=== PATIENT | female | born 1965 | race Asian ===

== ENCOUNTER 2016-05-01 06:16 | Emergency (ER) | payer BC, OTHER ==
[~2016-05-01] VITALS: Ht 172.7 cm; Wt 100.7 kg
[~2016-05-01 06:16] MED LIST: CELE200C2 PO; CELEBREX200 MG PO; DICL75TA4 PO
[2016-05-01 06:26] VITALS: TEMP 98
[2016-05-01 06:50] VITALS: BP 126/70
== END 2016-05-01 06:50 | disposition home or self-care (01) ==
LOC: ED 06:16
DX: H92.02 Otalgia, left ear (principal)
CPT/HCPCS: 99281

== ENCOUNTER 2017-01-02 16:58 | Emergency (ER) | payer BC ==
[~2017-01-02] VITALS: Ht 170.2 cm; Wt 102.5 kg
[2017-01-02 17:03] VITALS: TEMP 98
[2017-01-02 18:34] VITALS: BP 120/74
== END 2017-01-02 18:34 | disposition home or self-care (01) ==
LOC: ED 16:58
DX: S46.912A Strain of unspecified muscle, fascia and tendon at shoulder and upper arm level, left arm, initial encounter (principal); M25.462 Effusion, left knee; M25.461 Effusion, right knee; S60.212A Contusion of left wrist, initial encounter; W01.0XXA Fall on same level from slipping, tripping and stumbling without subsequent striking against object, initial encounter; Y92.512 Supermarket, store or market as the place of occurrence of the external cause
CPT/HCPCS: 99283

== ENCOUNTER 2018-02-03 10:37 | Outpatient (CLI) | payer OTHER | END 2018-02-03 22:41 | disposition home or self-care (01) | LOC: MAMMO 10:37 | DX: N64.4 Mastodynia (principal) ==

== ENCOUNTER 2018-08-20 08:58 | Outpatient (CLI) | payer OTHER | END 2018-08-20 21:00 | disposition home or self-care (01) | LOC: MAMMO 08:58 | DX: N64.4 Mastodynia (principal) ==

== ENCOUNTER 2019-05-21 08:07 | Outpatient (CLI) | payer OTHER | END 2019-05-21 19:22 | disposition home or self-care (01) | LOC: MAMMO 08:07 | DX: N64.4 Mastodynia (principal) ==

== ENCOUNTER 2019-12-29 08:10 | Outpatient (CLI) | payer OTHER | END 2019-12-29 23:55 | disposition home or self-care (01) | LOC: MRI 08:10 | DX: M25.552 Pain in left hip (principal) ==

== ENCOUNTER 2020-05-30 18:14 | Emergency (ER) | payer OTHER ==
[~2020-05-30] VITALS: Ht 167.6 cm; Wt 103.4 kg
[2020-05-30 19:43] LABS: PLATELET COUNT 197 K/uL (152-353)
[2020-05-30 19:53] LABS: POTASSIUM 3.8 mmol/L (3.6-5.2)
[2020-05-30 21:30] VITALS: BP 124/66; TEMP 99.5
== END 2020-05-30 21:30 | disposition still patient (30) ==
LOC: ED 18:14
PROVIDERS: Family Medicine
DX: U07.1 COVID-19 (principal); R05 Cough; J06.9 Acute upper respiratory infection, unspecified
CPT/HCPCS: 36415; 80053; 85027; 87502; 87635; 87651; 99283; U0003

== ENCOUNTER 2020-08-31 09:11 | Outpatient (CLI) | payer OTHER | END 2020-08-31 20:25 | disposition home or self-care (01) | LOC: MAMMO 09:11 | PROVIDERS: ATTEND Registered Nurse | DX: N64.4 Mastodynia (principal) | CPT/HCPCS: G0279 ==

== ENCOUNTER 2021-03-07 09:40 | Day surgery (SDC) | payer OTHER ==
[2021-03-05 10:31] LABS: PLATELET COUNT 337 K/uL (152-353)
[2021-03-05 10:45] LABS: POTASSIUM 3.6 mmol/L (3.6-5.2)
[~2021-03-07] VITALS: Ht 30.5 cm; Wt 0.5 kg
== END 2021-03-07 12:28 | disposition home or self-care (01) ==
LOC: OR 09:40
PROVIDERS: ATTEND Internal Medicine Gastroenterology
PROC: 0DJD8ZZ Inspection of Lower Intestinal Tract, Via Natural or Artificial Opening Endoscopic (ICD-10-PCS; principal; 2021-03-07)
DX: K64.8 Other hemorrhoids (principal); Z12.11 Encounter for screening for malignant neoplasm of colon; Z80.0 Family history of malignant neoplasm of digestive organs; Z20.822 Contact with and (suspected) exposure to COVID-19
CPT/HCPCS: 80053; 85027; 87635; J2704; J7120; U0003

== ENCOUNTER 2021-04-19 09:44 | Outpatient (CLI) | payer OTHER, BC | END 2021-04-19 19:22 | disposition home or self-care (01) | LOC: US 09:44 | PROVIDERS: ATTEND Registered Nurse | DX: M79.651 Pain in right thigh (principal) ==

== ENCOUNTER 2021-04-24 08:56 | Outpatient (CLI) | payer OTHER, BC | END 2021-04-24 19:01 | disposition home or self-care (01) | LOC: US 08:56 | PROVIDERS: ATTEND Registered Nurse | DX: M79.651 Pain in right thigh (principal) ==

== ENCOUNTER 2022-03-07 10:56 | Outpatient (CLI) | payer OTHER, BC | END 2022-03-07 19:50 | disposition home or self-care (01) | LOC: MAMMO 10:56 | PROVIDERS: ATTEND Registered Nurse | DX: Z12.31 Encounter for screening mammogram for malignant neoplasm of breast (principal) ==

== ENCOUNTER 2022-09-01 08:03 | Emergency (ER) | payer OTHER ==
[~2022-09-01] VITALS: Ht 167.6 cm; Wt 98.9 kg
[2022-09-01 09:37] VITALS: BP 140/65; TEMP 97.2
== END 2022-09-01 09:37 | disposition home or self-care (01) ==
LOC: ED 08:03
DX: M54.2 Cervicalgia (principal)
CPT/HCPCS: 96372; 99283; J1885; J2930

== ENCOUNTER 2022-11-05 11:21 | Outpatient (CLI) | payer OTHER | END 2022-11-05 19:24 | disposition home or self-care (01) | LOC: RAD 11:21 | PROVIDERS: ATTEND Registered Nurse | DX: M54.42 Lumbago with sciatica, left side (principal); M25.552 Pain in left hip ==